=== PATIENT | male | born 1955 | race Caucasian/White ===

== ENCOUNTER → 2016-08-20 | Outpatient (CLI) | payer OTHER ==
[~2016-08-20] MED LIST: THYR180T PO
[2016-08-20 12:14] LABS: BLOOD UREA NITROGEN 13 mg/dL (7-18)
== END | disposition home or self-care (01) ==
LOC: STAR 10:51
PROVIDERS: ATTEND Neurological Surgery
DX: Z01.818 Encounter for other preprocedural examination (principal); M48.02 Spinal stenosis, cervical region; R79.1 Abnormal coagulation profile; Z85.9 Personal history of malignant neoplasm, unspecified
CPT/HCPCS: 36415; 71020; 80048; 81003; 85025; 85610; 85730; 93005

== ENCOUNTER 2016-09-01 05:38 | Observation (INO) | payer OTHER ==
[~2016-09-01] VITALS: Ht 182.9 cm; Wt 109.0 kg
[2016-09-01] MEDS ORDERED: LACTATED RINGERS 1,000 ML IV SCH (06:20)
[2016-09-01 06:21] VITALS: BP 124/87
[2016-09-01] MEDS ORDERED: LIDOCAINE 1%, 2ML SQ PRN (06:30)
[2016-09-01] MEDS ORDERED: BUPIVACAINE/PF-EPI 0.5% 1:200K ONE (06:43)
[2016-09-01] MEDS ORDERED: BACITRACIN 50,000 UNIT ONE (06:43)
[2016-09-01] MEDS ORDERED: THROMBIN 5,000 UNIT VIAL TP ONE (06:43)
[2016-09-01] MEDS ORDERED: FENTANYL PF 250 MCG/5ML ONE (07:30)
[2016-09-01] MEDS ORDERED: MIDAZOLAM 1 MG/ML, 2ML ONE (07:30)
[2016-09-01] MEDS ORDERED: SUCCINYLCHOLINE 20 MG/ML, 10ML ONE (07:33)
[2016-09-01] MEDS ORDERED: DEXAMETHASONE 4 MG/ML, 1ML ONE (07:33)
[2016-09-01] MEDS ORDERED: PROPOFOL 10 MG/ML, 20ML ONE (07:33)
[2016-09-01] MEDS ORDERED: ONDANSETRON 2MG/ML, 2ML ONE (07:33)
[2016-09-01] MEDS ORDERED: CEFAZOLIN 1,000 MG ONE (07:33)
[2016-09-01] MEDS ORDERED: MIDAZOLAM 1 MG/ML, 2ML IV PRN (08:30)
[2016-09-01] MEDS ORDERED: MEPERIDINE/PF 25MG/0.5ML IVPush PRN (08:30)
[2016-09-01] MEDS ORDERED: ONDANSETRON 2MG/ML, 2ML IVPush PRN (08:30)
[2016-09-01] MEDS ORDERED: METOCLOPRAMIDE 5 MG/ML, 2ML IV PRN (08:30)
[2016-09-01] MEDS ORDERED: OXYcodone 5 MG/5 ML ORAL.SOL UDC PO PRN (08:30)
[2016-09-01] MEDS ORDERED: HYDROmorphone 1 MG/ML, 1ML IV PRN (08:30)
[2016-09-01] MEDS ORDERED: hydrALAzine 20 MG/ML, 1ML IV PRN (08:30)
[2016-09-01] MEDS ORDERED: ACETAMINOPHEN 325 MG TABLET PO PRN (08:30)
[2016-09-01] MEDS ORDERED: FENTANYL PF 100 MCG/2ML IV PRN (08:30)
[2016-09-01] MEDS ORDERED: LABETALOL 5MG/ML, 20ML IV PRN (08:30)
[2016-09-01] MEDS ORDERED: ALBUTEROL/IPRATROPIUM 2.5MG/0.5MG, 3 ML NPPB PRN (08:30)
[2016-09-01] MEDS ORDERED: PROMETHAZINE 25 MG/ML, 1ML IV PRN (08:30)
[2016-09-01] MEDS ORDERED: HYDROmorphone 1 MG/ML, 1ML ONE (09:31)
[2016-09-01] MEDS ORDERED: OXYcodone 5 MG/5 ML ORAL.SOL UDC ONE (10:27)
[2016-09-01] MEDS ORDERED: ACETAMINOPHEN 650 MG/20.3 ML UDC ONE (10:27)
[2016-09-01] MEDS ORDERED: BISACODYL 10 MG SUPP PR PRN (11:30)
[2016-09-01] MEDS ORDERED: TIZANIDINE 4MG TABLET PO PRN (11:30)
[2016-09-01] MEDS ORDERED: HYDROmorphone PCA 30 MG/30 ML IV PRN (11:30)
[2016-09-01] MEDS ORDERED: HYDROcodone/APAP 5/325 TABLET PO PRN (11:30)
[2016-09-01] MEDS: NS + 20MEQ KCL 1,000 ML IV SCH ×2 (11:30→20:32)
[2016-09-01] MEDS ORDERED: MAGNESIUM HYDROXIDE 8%, 30ML UDC PO PRN (11:30)
[2016-09-01] MEDS ORDERED: OXYcodone/APAP 5/325MG TABLET PO PRN (11:30)
[2016-09-01] MEDS ORDERED: ONDANSETRON 2MG/ML, 2ML IV PRN (11:30)
[2016-09-01] MEDS ORDERED: DIPHENHYDRAMINE 50 MG/ML, 1ML IVPush PRN (11:30)
[2016-09-01] MEDS ORDERED: morphine SULFATE 10 MG/ML, 1ML IV PRN (11:30)
[2016-09-01] MEDS ORDERED: THYROID 30 MG TABLET PO SCH (12:00)
[2016-09-01 13:00] VITALS: BP 109/71
[2016-09-01] MEDS: CEFAZOLIN PMX 1GM/50ML 50 ML IVPB SCH ×2 (15:43→23:03)
[2016-09-01 19:12] VITALS: BP 105/66
[2016-09-01 23:14] VITALS: BP 137/76
[2016-09-02 03:54] VITALS: BP 121/78
[2016-09-02 07:15] VITALS: BP 141/81
[2016-09-02] MEDS ORDERED: OXYC-302 PO (08:21)
[2016-09-02] MEDS ORDERED: METH4TAB2 PO (08:22)
[2016-09-02] MEDS ORDERED: TIZA4CAP2 PO (08:22)
[2016-09-02] MEDS ORDERED: SENNA/DOCUSATE TABLET PO SCH (09:00)
== END 2016-09-02 09:20 | disposition home or self-care (01) ==
LOC: OUT 05:38 → 4NOR 11:05 → OUT 09-02 09:03
PROVIDERS: ADMIT Neurological Surgery; ATTEND Neurological Surgery
DX: M50.01 Cervical disc disorder with myelopathy, high cervical region (principal); G56.02 Carpal tunnel syndrome, left upper limb
CPT/HCPCS: 20937; 22551; 22853; 64721; 72040; 96365; 96375; C1713; G0378; J0330; J0690; J1100; J1170; J2250; J2405; J2704; J3010; J3480; J3490; J7120; 95938; 95941

== ENCOUNTER 2016-09-28 05:28 | Day surgery (SDC) | payer OTHER ==
[~2016-09-28] VITALS: Ht 182.9 cm; Wt 103.0 kg
[~2016-09-28 05:28] MED LIST changes: +METH4TAB2 PO; +OXYC-302 PO; +TIZA4CAP2 PO
[2016-09-28] MEDS ORDERED: LACTATED RINGERS 1,000 ML IV SCH (06:01)
[2016-09-28 06:07] VITALS: BP 119/78
[2016-09-28] MEDS ORDERED: LIDOCAINE 1%, 2ML SQ PRN (06:30)
[2016-09-28] MEDS ORDERED: BUPIVACAINE/PF 0.5% ONE (06:48)
[2016-09-28] MEDS ORDERED: FENTANYL PF 100 MCG/2ML ONE (07:21)
[2016-09-28] MEDS ORDERED: PROPOFOL 10 MG/ML, 20ML ONE (07:57)
[2016-09-28] MEDS ORDERED: ONDANSETRON 2MG/ML, 2ML ONE (07:57)
[2016-09-28] MEDS ORDERED: DEXAMETHASONE 4 MG/ML, 1ML ONE (07:57)
[2016-09-28] MEDS ORDERED: METOCLOPRAMIDE 5 MG/ML, 2ML ONE (07:57)
[2016-09-28] MEDS ORDERED: BACITRACIN 50,000 UNIT ONE (08:02)
[2016-09-28] MEDS ORDERED: PROMETHAZINE 25 MG/ML, 1ML IV PRN (08:30)
[2016-09-28] MEDS ORDERED: ONDANSETRON 2MG/ML, 2ML IVPush PRN (08:30)
[2016-09-28] MEDS ORDERED: HYDROmorphone 1 MG/ML, 1ML IV PRN (08:30)
[2016-09-28] MEDS ORDERED: MEPERIDINE/PF 25MG/0.5ML IVPush PRN (08:30)
[2016-09-28] MEDS ORDERED: hydrALAzine 20 MG/ML, 1ML IV PRN (08:30)
[2016-09-28] MEDS ORDERED: LABETALOL 5MG/ML, 20ML IV PRN (08:30)
[2016-09-28] MEDS ORDERED: FENTANYL PF 100 MCG/2ML IV PRN (08:30)
[2016-09-28] MEDS ORDERED: OXYcodone 5 MG/5 ML ORAL.SOL UDC PO PRN (08:30)
[2016-09-28] MEDS ORDERED: MIDAZOLAM 1 MG/ML, 2ML IV PRN (08:30)
== END 2016-09-28 10:40 ==
LOC: OUT 05:28
PROVIDERS: ATTEND Neurological Surgery
DX: G56.01 Carpal tunnel syndrome, right upper limb (principal); E03.9 Hypothyroidism, unspecified
CPT/HCPCS: 64721; J1100; J2405; J2704; J2765; J3010; J3490; J7120

== ENCOUNTER → 2017-12-14 | Outpatient (CLI) | payer OTHER ==
[~2017-12-14] MED LIST changes: +OMNIPAQUE 350 MG/ML, 100ML BOTTLE ONE
== END | disposition home or self-care (01) ==
LOC: CFH 14:10
PROVIDERS: ATTEND Otolaryngology
DX: R22.1 Localized swelling, mass and lump, neck (principal); J32.0 Chronic maxillary sinusitis
CPT/HCPCS: 70491; 82565; Q9967

== ENCOUNTER → 2019-03-01 | Outpatient (CLI) | payer OTHER ==
[~2019-03-01] MED LIST changes: -OMNIPAQUE 350 MG/ML, 100ML BOTTLE ONE; +testosterone cream TP
[2019-03-01 11:30] LABS: BASOPHILS # (AUTO) 0.02 x10^3/uL (0-0.1); BASOPHILS % (AUTO) 0 % (0-1); EOSINOPHILS # (AUTO) 0.18 x10^3/uL (0-0.4); EOSINOPHILS % (AUTO) 3 % (1-7); LYMPHOCYTES # (AUTO) 1.88 x10^3/uL (1-3.4); LYMPHOCYTES % (AUTO) 29 % (22-44); MD NO; MEAN CORPUSCULAR HGB CONC 33.1 g/dL (33.2-36.2); MEAN CORPUSCULAR VOLUME 96.7 fL (81-97); MEAN PLATELET VOLUME 8.1 fL (7.4-10.4); MONOCYTES # (AUTO) 0.49 x10^3/uL (0.2-0.8); MONOCYTES % (AUTO) 8 % (2-9); NEUTROPHILS # (AUTO) 3.97 x10^3/uL (1.8-6.8); NEUTROPHILS % (AUTO) 61 % (42-75); PLATELET COUNT 186 x10^3/uL (130-400); RED BLOOD COUNT 5.69 x10^6/uL (4.38-5.82); RED CELL DISTRIBUTION WIDTH 14.3 % (9.4-14.8)
[2019-03-01 11:39] LABS: ANION GAP 7 mmol/L (5-15); CALCIUM 9.6 mg/dL (8.5-10.1); CHLORIDE 107 mmol/L (98-107); CREATININE 1.11 mg/dL (0.7-1.3)
[2019-03-01 11:41] LABS: INTERNATIONAL NORMALIZED RATIO 1.04 (0.93-1.1); PROTHROMBIN TIME 10.9 Seconds (9.6-11.5)
[2019-03-01 12:54] LABS: HEMOGLOBIN A1C 6.1 % (4.2-6.3)
== END | disposition home or self-care (01) ==
LOC: STAR 10:16
PROVIDERS: ATTEND Orthopaedic Surgery
DX: Z01.818 Encounter for other preprocedural examination (principal); M16.11 Unilateral primary osteoarthritis, right hip; M17.11 Unilateral primary osteoarthritis, right knee; M23.8X2 Other internal derangements of left knee
CPT/HCPCS: 36415; 80048; 83036; 85025; 85610; 85730; 87081; 87147; 93005

== ENCOUNTER 2019-03-08 11:54 | Inpatient (IN) | payer OTHER ==
[~2019-03-08] VITALS: Ht 185.4 cm; Wt 99.6 kg
[~2019-03-08 11:54] MED LIST changes: +EPINEPHRINE 1 MG/ML, 1ML ONE; +KETOROLAC 60 MG/2 ML ONE; +SODIUM CHLORIDE 0.9% 50 ML ONE; +TRANEXAMIC ACID 100 MG/ML, 10ML ONE; +VANCOMYCIN 1,000 MG ONE
[2019-03-08] MEDS ORDERED: MIDAZOLAM 1 MG/ML, 2ML ONE (12:10)
[2019-03-08] MEDS ORDERED: FENTANYL PF 250 MCG/5ML ONE (12:11)
[2019-03-08] MEDS ORDERED: LACTATED RINGERS 1,000 ML IV SCH (12:18)
[2019-03-08] MEDS ORDERED: GABAPENTIN 300 MG CAPSULE PO ONE ×2 (12:30)
[2019-03-08] MEDS ORDERED: ACETAMINOPHEN 500 MG TABLET PO ONE (12:30)
[2019-03-08] MEDS ORDERED: BISACODYL 10 MG SUPP PR PRN (13:00)
[2019-03-08] MEDS ORDERED: ONDANSETRON ODT 4 MG PO PRN (13:00)
[2019-03-08] MEDS ORDERED: MAGNESIUM HYDROXIDE 8%, 30ML UDC PO PRN (13:00)
[2019-03-08] MEDS ORDERED: ONDANSETRON 2MG/ML, 2ML IV PRN (13:00)
[2019-03-08] MEDS ORDERED: SCOPOLAMINE PATCH, 1.5MG PATCH.TD72 TD ONE (13:00)
[2019-03-08] MEDS ORDERED: DIPHENHYDRAMINE 25 MG CAPSULE PO PRN (13:00)
[2019-03-08] MEDS ORDERED: ACETAMINOPHEN 650 MG/20.3 ML UDC PO PRN (13:00)
[2019-03-08] MEDS ORDERED: DIAZEPAM 5 MG/ML, 2ML IVPush PRN (13:30)
[2019-03-08] MEDS ORDERED: HYDROmorphone 2 MG/ML, 1ML IVPush PRN (13:30)
[2019-03-08] MEDS ORDERED: OXYcodone 5 MG/5 ML ORAL.SOL UDC PO PRN (13:30)
[2019-03-08] MEDS ORDERED: PROMETHAZINE 25 MG/ML, 1ML IV PRN (13:30)
[2019-03-08] MEDS ORDERED: hydrALAzine 20 MG/ML, 1ML IV PRN (13:30)
[2019-03-08] MEDS ORDERED: MEPERIDINE/PF 25MG/ML,1ML IVPush PRN (13:30)
[2019-03-08] MEDS ORDERED: FENTANYL PF 100 MCG/2ML IV PRN (13:30)
[2019-03-08] MEDS ORDERED: MIDAZOLAM 1 MG/ML, 2ML IV PRN (13:30)
[2019-03-08] MEDS ORDERED: METOPROLOL 1 MG/ML, 5ML IV PRN (13:30)
[2019-03-08] MEDS ORDERED: ALBUTEROL/IPRATROPIUM 2.5MG/0.5MG, 3 ML NPPB PRN (13:30)
[2019-03-08] MEDS ORDERED: DEXAMETHASONE 4 MG/ML, 1ML ONE (14:05)
[2019-03-08] MEDS ORDERED: PROPOFOL 10 MG/ML, 20ML ONE (14:05)
[2019-03-08] MEDS ORDERED: GLYCOPYRROLATE 0.2MG/1ML, 5ML ONE (14:05)
[2019-03-08] MEDS ORDERED: CEFAZOLIN 1,000 MG ONE (14:05)
[2019-03-08] MEDS ORDERED: NEOSTIGMINE 1 MG/ML, 10ML ONE (14:05)
[2019-03-08] MEDS ORDERED: ROCURONIUM 10MG/ML,5ML ONE (14:05)
[2019-03-08] MEDS ORDERED: ONDANSETRON 2MG/ML, 2ML ONE (14:05)
[2019-03-08] MEDS ORDERED: SUCCINYLCHOLINE 20 MG/ML, 10ML ONE (14:05)
[2019-03-08] MEDS ORDERED: OXYcodone 5 MG/5 ML ORAL.SOL UDC ONE (14:25)
[2019-03-08] MEDS ORDERED: FENTANYL PF 100 MCG/2ML ONE (14:25)
[2019-03-08] MEDS ORDERED: MEPERIDINE/PF 25MG/ML,1ML ONE (14:25)
[2019-03-08] MEDS: NS + 20MEQ KCL 1,000 ML IV SCH (16:00)
[2019-03-08] MEDS ORDERED: SENNA/DOCUSATE TABLET PO PRN (16:00)
[2019-03-08] MEDS: ASPIRIN 81 MG TABLET EC PO SCH (18:00)
[2019-03-08 19:07] VITALS: BP 124/72
[2019-03-08] MEDS: DOCUSATE 100 MG CAPSULE PO SCH (20:49)
[2019-03-08] MEDS ORDERED: ZOLPIDEM 5MG TABLET PO PRN (21:00)
[2019-03-08] MEDS: CEFAZOLIN 2,000 MG in SODIUM CHLORIDE 0.9% 50 ML IVPB SCH (23:49)
[2019-03-09 00:49] VITALS: BP 115/74
[2019-03-09] MEDS: NS + 20MEQ KCL 1,000 ML IV SCH (01:52)
[2019-03-09 04:33] VITALS: BP 127/69
[2019-03-09] MEDS: ASPIRIN 81 MG TABLET EC PO SCH (05:25)
[2019-03-09] MEDS ORDERED: DEXAMETHASONE 4 MG/ML, 1ML IVPush SCH (06:00)
[2019-03-09 07:01] VITALS: BP 124/76
[2019-03-09] MEDS ORDERED: THYROID 30 MG TABLET PO SCH (07:30)
[2019-03-09] MEDS: DOCUSATE 100 MG CAPSULE PO SCH (08:42)
[2019-03-09] MEDS: CEFAZOLIN 2,000 MG in SODIUM CHLORIDE 0.9% 50 ML IVPB SCH (08:42)
[2019-03-09] MEDS ORDERED: TESTOSTERONE HOMETP SCH (09:00)
[2019-03-09] MEDS ORDERED: MELO7.5T31 PO (09:03)
[2019-03-09] MEDS ORDERED: TRAM50TA2 PO (09:04)
== END 2019-03-09 12:28 | disposition home or self-care (01) | DRG 470 ==
LOC: ORIP 11:54 → 4NE 15:39 → DCLOUNGE 03-09 12:17
PROVIDERS: ADMIT Orthopaedic Surgery; ATTEND Orthopaedic Surgery
PROC: 0SR906A Replacement of Right Hip Joint with Oxidized Zirconium on Polyethylene Synthetic Substitute, Uncemented, Open Approach (ICD-10-PCS; principal; 2019-03-08 14:00)
DX: M16.11 Unilateral primary osteoarthritis, right hip (principal); G47.33 Obstructive sleep apnea (adult) (pediatric); E78.5 Hyperlipidemia, unspecified; N18.9 Chronic kidney disease, unspecified; I12.9 Hypertensive chronic kidney disease with stage 1 through stage 4 chronic kidney disease, or unspecified chronic kidney disease
CPT/HCPCS: 36415; 72170; 76000; 85014; 85018; C1713; G0378; J0171; J0690; J1100; J1885; J2250; J2405; J2704; J2710; J3010; J3370; C1776; J0330; J2175; J7120